=== PATIENT | female | born 1970 | race Caucasian/White ===

== ENCOUNTER 2018-07-02 07:20 | Day surgery (SDC) | payer BC ==
[2018-07-02] MEDS ORDERED: Propofol 200 MG/20 ML SDV ONE (07:36)
[2018-07-02] MEDS ORDERED: Rocuronium 10 MG/ML 10 ML Syringe ONE (07:36)
[2018-07-02] MEDS ORDERED: fentaNYL 250 MCG/5 ML SDV ONE (07:36)
[2018-07-02] MEDS ORDERED: Midazolam 1 MG/ML 2 ML SDV ONE (07:36)
[2018-07-02] MEDS ORDERED: Lidocaine 2% 5 ML SDV ONE (07:36)
[2018-07-02] MEDS ORDERED: Ondansetron 4 MG/2 ML SDV ONE (07:36)
[2018-07-02] MEDS ORDERED: Acetaminophen/HYDROcodone 325-5 MG Tab PO PRN (08:00)
[2018-07-02] MEDS ORDERED: ceFAZolin 2 GM in Premix Bag 1 BAG IV ONE (08:00)
[2018-07-02] MEDS ORDERED: Bupivacaine 0.25%/EPINEPHrine 1:200,000 10 ML SDV INJECT ONE (08:00)
[2018-07-02] MEDS ORDERED: Lactated Ringers 1,000 ML IV SCH (08:00)
--- NOTE | 2018-07-02 08:23 | PCM.PREANE ---
Preanesthetic Assessment - Anesthesia/Transfusion/Family Hx Anesthesia History: Prior Anesthesia Without Reaction Other Type of Anesthesia Reaction Comment: "family and myself have problems with nausea after anesthesia" Family History of Anesthesia Reaction: No Transfusion History: No Prior Transfusion(s) Intubation History: Unknown - Review of Systems General: No Symptoms Pulmonary: No Symptoms Cardiovascular: No Symptoms Gastrointestinal: No Symptoms Neurological: No Symptoms Other: Reports: None - Physical Assessment Height: 1.68 m Weight: 83.915 kg ASA Class: 2 Mental Status: Alert & Oriented x3 Airway Class: Mallampati = 2 Dentition: Reports: Normal Dentition Thyro-Mental Finger Breadths: 3 Mouth Opening Finger Breadths: 2 ROM/Head Extension: Full Lungs: Clear to Auscultation, Normal Respiratory Effort Cardiovascular: Regular Rate, Regular Rhythm - Allergies Allergies/Adverse Reactions: Allergies Allergy/AdvReac Type Severity Reaction Status Date / Time No Known Allergies Allergy Verified 06/26/18 13:32 - Blood Blood Available: No - Anesthesia Plan Pre-Op Medication Ordered: None - Acknowledgements Anesthesia Type Planned: General Anesthesia Pt an Appropriate Candidate for the Planned Anesthesia: Yes Alternatives and Risks of Anesthesia Discussed w Pt/Guardian: Yes Pt/Guardian Understands and Agrees with Anesthesia Plan: Yes PreAnesthesia Questionnaire HEENT History: Reports: None Respiratory History: Reports: Asthma (mild) Gastrointestinal History: Reports: None Genitourinary History: Reports: None Musculoskeletal History: Reports: Osteoarthritis Dermatologic History: Reports: Psoriasis - Past Surgical History HEENT Surgical History: Reports: Naso-Sinus Surgery GI Surgical History: Reports: Appendectomy Musculoskeletal Surgical History: Reports: Arthroscopic Knee, Other (See Below) (Rt. carpo-matacarpal arthroplasty 9 weeks ago) Other Musculoskeletal Surgeries/Procedures:: left knee surgery x4, (ACL repair and meniscus repair) - SUBSTANCE USE Smoking Status *Q: Former Smoker Tobacco Use Within Last Twelve Months: Cigarettes Recreational Drug Use History: No - HOME MEDS Home Medications: Home Meds Albuterol [Proventil HFA] 1 puff INH ASDIRECTED PRN 04/28/18 [History] Ipratropium/Albuterol Sulfate [Iprat-Albut 0.5-3(2.5) mg/3 ml] 1 inhalation NEB ASDIRECTED PRN 04/28/18 [History] Diclofenac Sodium [Voltaren] 1 tab PO ASDIRECTED PRN 06/26/18 [History] traMADol HCl [Tramadol HCl] 50 mg PO ASDIRECTED PRN 06/26/18 [History] - CURRENT (IN HOUSE) MEDS Current Meds: Current Medications Hydrocodone Bitart/Acetaminophen ([place] 325-5 Mg) 1 tab PO Q4H PRN PRN Reason: Pain Cefazolin Sodium/Dextrose 2 gm (/ Premix) 50 mls @ 100 mls/hr IV ONETIME ONE Stop: 07/02/18 08:29 Lactated Ringer's (Ringers, Lactated) 1,000 mls @ 125 mls/hr IV ASDIRECTED TADEO Discontinued Medications Bupivacaine HCl/Epinephrine Bitart (Marcaine 0.25%/Epinephrine 1:200,000) 10 ml INJECT ONETIME ONE Stop: 07/02/18 08:01 Fentanyl (Sublimaze) Confirm Administered Dose 250 mcg .ROUTE .STK-MED ONE Stop: 07/02/18 07:37 Lidocaine (Xylocaine-Mpf 2%) Confirm Administered Dose 5 ml .ROUTE .STK-MED ONE Stop: 07/02/18 07:37 Midazolam HCl (Versed 1 Mg/Ml) Confirm Administered Dose 2 mg .ROUTE .STK-MED ONE Stop: 07/02/18 07:37 Ondansetron HCl (Zofran) Confirm Administered Dose 4 mg .ROUTE .STK-MED ONE Stop: 07/02/18 07:37 Propofol (Diprivan 20 Ml) Confirm Administered Dose 200 mg .ROUTE .STK-MED ONE Stop: 07/02/18 07:37 Rocuronium Josephine (Zemuron) Confirm Administered Dose 100 mg .ROUTE .STK-MED ONE Stop: 07/02/18 07:37
[2018-07-02] MEDS ORDERED: Scopolamine 1.5 MG Transdermal Patch TRDERM PRN (08:29)
[2018-07-02] MEDS ORDERED: Sodium Chloride 0.9% 20 ML ONE (09:47)
[2018-07-02] MEDS ORDERED: ceFAZolin 1 GM Vial ONE (09:47)
[2018-07-02] MEDS ORDERED: Bupivacaine 0.25%/EPINEPHrine 1:200,000 10 ML SDV ONE (10:01)
[2018-07-02] MEDS ORDERED: EPINEPHrine 1 MG/ML 30 ML MDV IVPUSH ONE (10:43)
[2018-07-02] MEDS ORDERED: 50% Dextrose in Water 50 ML Syringe IVPUSH PRN (10:43)
[2018-07-02] MEDS ORDERED: Atropine 1 MG/ML SDV IVPUSH PRN ×2 (10:43)
[2018-07-02] MEDS ORDERED: fentaNYL 100 MCG/2 ML SDV IVPUSH PRN (10:43)
[2018-07-02] MEDS ORDERED: Albuterol 0.083% 2.5 MG/3 ML Neb Soln NEB PRN (10:43)
[2018-07-02] MEDS ORDERED: Naloxone 0.4 MG/ML Syringe IVPUSH PRN (10:43)
--- NOTE | 2018-07-02 12:11 | PCM.POSTAN ---
POST ANESTHESIA ASSESSMENT - MENTAL STATUS Mental Status: Alert, Oriented - RESPIRATORY Respiratory Status: Respiratory Rate WNL, Airway Patent, O2 Saturation Stable - CARDIOVASCULAR CV Status: Pulse Rate WNL, Blood Pressure Stable - GASTROINTESTINAL GI Status: No Symptoms - PAIN Pain Score: 3 - POST OP HYDRATION Hydration Status: Adequate & Stable - OBSERVATIONS Free Text/Narrative:: no anesthesia problems
[2018-07-02] MEDS ORDERED: traMADol 50 MG Tab PO PRN (12:30)
--- NOTE | 2018-07-02 15:00 | PCM.OPNOTE ---
- General Post-Op/Procedure Note Date of Surgery/Procedure: 07/02/18 Operative Procedure(s): left thumb CMC arthroplasty (trapeziectomy, prximal metacarpal removal and ligament reconstruction and tendon interpositon with the flexor carpi radialis) Pre Op Diagnosis: left thumb cmc arthritis severe Post-Op Diagnosis: Same Anesthesia Technique: General LMA, Local Primary Surgeon: Annika Pritchett Road Crew Member: Lyubov Leach [address] Crew Member Was Necessary: retraction, prepping draping and closure assistance Complications: None Condition: Good Free Text/Narrative:: Intake & Output 07/01/18 07/02/18 07/02/18 23:59 07:59 15:59 Intake Total 1300 Balance 1300
--- NOTE | 2018-07-02 17:07 | OR ---
SURGEON: FLACA MILLER MD DATE OF PROCEDURE: 07/02/2018 PREOPERATIVE DIAGNOSIS: Left thumb carpometacarpal arthritis, severe. POSTOPERATIVE DIAGNOSIS: Left thumb carpometacarpal arthritis, severe. PROCEDURES: Left thumb carpometacarpal arthroplasty. FUNERAL HOME MANAGER: NATALIIA Muñoz. REASON FOR AND ROLE OF FUNERAL HOME MANAGER: Retraction, prepping, draping, positioning and closure assistance. ANESTHESIA: General LMA with local. INDICATIONS: Ms. Roberson is seen today in evaluation for left CMC arthroplasty. She had the right one done nine weeks ago. She has done well with this, but does have some superficial radial nerve paresthesias, still bothering her on the right side. She does still have some swelling here as expected. Risks and benefits of the left side were discussed with her and she was in agreement to proceed. Risks were including, but not limited to, bleeding, infection, damage to underlying or overlying structures, possible need for future interventions, possible scarring. PROCEDURE IN DETAIL: After informed consent was obtained and placed on the chart, the patient was brought to operating theater and laid in supine position. After adequate general anesthesia was obtained, the area was prepped and draped, and a time-out was completed to confirm side and site. 0.25% Marcaine with epinephrine was injected into the area and the arm was exsanguinated and tourniquet was insufflated to 200 mmHg. Attention was then paid to a curvilinear dissection down to the metacarpophalangeal joint. Care was taken to retract any of the superficial radial nerve branches. Once adequately located on the joint surface, dissection was then carried onto the trapezium itself and distally onto the metacarpal head. There was significant subluxation of the metacarpal base. Once adequately dissected here, exposed the trapezium itself, was confirmed using fluoroscopy and removed en bloc. Once adequately removed, it was sent for Pathology. Once adequately removed, meticulous hemostasis was obtained and any grossly devitalized bone or inflammation surrounding the area was debrided as well. Attention was then paid to identification of the base of the metacarpal and this was freed from its attachments, and a bone saw was used to transect the base that was significantly involved in the arthritis as well. Once this was transected, attention was then paid to a small 3 mm sarah that was used to sarah a hole through the base of the metacarpal to its side wall to allow resuspension. Once adequately completed, attention was then paid to harvest of the flexor carpi radialis tendon. A separate proximal incision in the forearm was made and dissection was carried down onto the flexor carpi radialis itself. The tendon was then passed into the wound itself through the base of the metacarpal and round about and sutured upon itself to restore appropriate position of the thumb with suspension. Once adequately restored, the remainder of the tendon was then placed into a round ball and sutured together for an anchovy and placed into the previous trapezium site. Once adequately placed, this was sutured upon itself as well, and then the wound was copiously irrigated with normal saline. Once adequately irrigated, the capsule itself was closed around this using a 4-0 Monocryl stitch. Once adequately closed, attention was then paid to deflation of the tourniquet, meticulous hemostasis. Copious irrigation and then closure of the skin. The patient tolerated this well, and all counts and needles were correct at the end of the case. The wound was dressed with Xeroform, fluffs, Kerlix gauze dressing, and a short- arm thumb spica splint. The patient was given a prescription for pain control. She will see us in approximately 2 weeks, sooner if any problems, questions, or concerns. STUART / ROMEO /[id number]
== END 2018-07-02 14:35 | disposition home or self-care (01) ==
LOC: MW.SDS 07:20
PROVIDERS: ATTEND Plastic Surgery
DX: M18.0 Bilateral primary osteoarthritis of first carpometacarpal joints (principal); M65.4 Radial styloid tenosynovitis [de Quervain]; M17.12 Unilateral primary osteoarthritis, left knee; J45.909 Unspecified asthma, uncomplicated; Z79.899 Other long term (current) drug therapy; Z87.891 Personal history of nicotine dependence
CPT/HCPCS: 25447; 81025; A9270; J0690; J2001; J2250; J2405; J2704; J3010; J3490; J7120

== ENCOUNTER 2023-04-10 21:20 | Emergency (ER) | payer BC ==
[2023-04-10] MEDS ORDERED: Sodium Chloride 0.9% 1,000 ML IV ONE (22:04)
[2023-04-10] MEDS ORDERED: Metoclopramide 10 MG/2 ML SDV IVPUSH ONE (22:04)
[2023-04-10] MEDS ORDERED: Sodium Chloride 0.9% 10 ML Syringe FLUSH PRN (22:04)
[2023-04-10] MEDS ORDERED: diphenhydrAMINE 50 MG/ML SDV IVPUSH ONE (22:04)
[2023-04-10] MEDS ORDERED: fentaNYL 50 MCG/ML SDV IVPUSH ONE (22:04)
[2023-04-10] MEDS ORDERED: Sodium Chloride 0.9% 2.5 ML Syringe FLUSH PRN (22:04)
[2023-04-10 22:26] LABS: BASOPHILS ABSOLUTE AUTO 0.04 K/uL (0.00-0.20); BASOPHILS PERCENT AUTO 0.5 % (0.0-1.0); EOSINOPHILS ABSOLUTE AUTO 0.29 K/uL (0.00-0.45); EOSINOPHILS PERCENT AUTO 3.3 % (0.0-6.0); HEMATOCRIT 38.9 % (37.0-47.0); IMMATURE GRAN ABSOLUTE AUTO 0.02 K/uL (0.00-0.05); IMMATURE GRAN PERCENT AUTO 0.2 % (0.0-0.4); LYMPHOCYTES ABSOLUTE AUTO 3.26 K/uL (1.00-4.80); LYMPHOCYTES PERCENT AUTO 37.3 % (24.0-44.0); MEAN CORPUSCULAR HEMOGLOBIN 29.3 pg (28.0-32.0); MEAN CORPUSCULAR HGB CONC 33.4 g/dL (32.0-36.0); MEAN CORPUSCULAR VOLUME 87.6 fL (83.0-99.0); MEAN PLATELET VOLUME 9.1 fL (9.4-12.3); MONOCYTES ABSOLUTE AUTO 0.64 K/uL (0.00-0.80); MONOCYTES PERCENT AUTO 7.3 % (0.0-8.0); NEUTROPHILS ABSOLUTE AUTO 4.48 K/uL (1.80-7.70); NEUTROPHILS PERCENT AUTO 51.4 % (41.0-71.0); PLATELET COUNT,PLT 315 K/uL (150-400); RED BLOOD CELL COUNT 4.44 M/uL (4.10-5.30); WHITE BLOOD CELL COUNT,WBC 8.73 K/uL (3.9-11.3)
[2023-04-10 22:51] LABS: A/G RATIO 1.1 (0.9-1.6); ALBUMIN 4.1 g/dL (3.4-5.0); BILIRUBIN TOTAL 0.5 mg/dL (0.2-1.0); CALCIUM 9.3 mg/dL (8.5-10.1); CARBON DIOXIDE,CO2 28.2 mmol/L (21.0-32.0); CREATININE 0.9 mg/dL (0.6-1.0); EST CRCL DRUG DOSING (CG) 83.42 mL/min; POTASSIUM,K 4.1 mmol/L (3.5-5.1); PROTEIN TOTAL,TP 7.7 g/dL (6.4-8.2)
[2023-04-10] MEDS ORDERED: Ondansetron 4 MG/2 ML SDV IVPUSH ONE (23:09)
[2023-04-10] MEDS ORDERED: Iopamidol 755 MG/ML 500 ML Multipack Bottle IVPUSH ONE (23:38)
[2023-04-11] MEDS ORDERED: HYDROmorphone 1 MG/ML Syringe IVPUSH ONE (00:57)
[2023-04-11 01:38] LABS: INR 1.01 (0.86-1.11)
== END 2023-04-11 03:19 ==
LOC: MW.ED 21:20
DX: I60.9 Nontraumatic subarachnoid hemorrhage, unspecified (principal); J45.909 Unspecified asthma, uncomplicated; Z79.899 Other long term (current) drug therapy
CPT/HCPCS: 36415; 70450; 70496; 70498; 80053; 85025; 85610; 85730; 96361; 96374; 96375; 99285; J1170; J1200; J2405; J2765; J3010; J3490; J7030; Q9967; 99291

== ENCOUNTER 2023-04-16 16:40 | Emergency (ER) | payer BC ==
[2023-04-16] MEDS ORDERED: Sodium Chloride 0.9% 10 ML Syringe FLUSH PRN (17:16)
[2023-04-16] MEDS ORDERED: Sodium Chloride 0.9% 2.5 ML Syringe FLUSH PRN (17:16)
[2023-04-16] MEDS ORDERED: Morphine 4 MG/ML Syringe IVPUSH ONE (17:17)
[2023-04-16] MEDS ORDERED: Ondansetron 4 MG/2 ML SDV IVPUSH ONE (17:18)
[2023-04-16 17:28] LABS: BASOPHILS ABSOLUTE AUTO 0.05 K/uL (0.00-0.20); BASOPHILS PERCENT AUTO 0.4 % (0.0-1.0); EOSINOPHILS ABSOLUTE AUTO 0.51 K/uL (0.00-0.45); EOSINOPHILS PERCENT AUTO 4.4 % (0.0-6.0); HEMOGLOBIN 14.3 g/dL (12.0-16.0); IMMATURE GRAN ABSOLUTE AUTO 0.05 K/uL (0.00-0.05); IMMATURE GRAN PERCENT AUTO 0.4 % (0.0-0.4); LYMPHOCYTES ABSOLUTE AUTO 1.83 K/uL (1.00-4.80); LYMPHOCYTES PERCENT AUTO 15.9 % (24.0-44.0); MEAN CORPUSCULAR HEMOGLOBIN 29.2 pg (28.0-32.0); MEAN CORPUSCULAR VOLUME 85.9 fL (83.0-99.0); MEAN PLATELET VOLUME 9.3 fL (9.4-12.3); MONOCYTES ABSOLUTE AUTO 0.73 K/uL (0.00-0.80); MONOCYTES PERCENT AUTO 6.4 % (0.0-8.0); NEUTROPHILS ABSOLUTE AUTO 8.32 K/uL (1.80-7.70); NEUTROPHILS PERCENT AUTO 72.5 % (41.0-71.0); PLATELET COUNT,PLT 357 K/uL (150-400); RED BLOOD CELL COUNT 4.89 M/uL (4.10-5.30); WHITE BLOOD CELL COUNT,WBC 11.49 K/uL (3.9-11.3)
[2023-04-16 17:36] LABS: INR 1.02 (0.86-1.11)
[2023-04-16 18:04] LABS: ALBUMIN 3.8 g/dL (3.4-5.0); BILIRUBIN TOTAL 0.6 mg/dL (0.2-1.0); CARBON DIOXIDE,CO2 21.5 mmol/L (21.0-32.0); CREATININE 1.2 mg/dL (0.6-1.0); EST CRCL DRUG DOSING (CG) 50.75 mL/min; POTASSIUM,K 3.6 mmol/L (3.5-5.1); PROTEIN TOTAL,TP 7.7 g/dL (6.4-8.2)
== END 2023-04-16 19:10 ==
LOC: MW.ED 16:40
DX: I60.9 Nontraumatic subarachnoid hemorrhage, unspecified (principal); J45.909 Unspecified asthma, uncomplicated; Z91.048 Other nonmedicinal substance allergy status; Z79.899 Other long term (current) drug therapy
CPT/HCPCS: 36415; 70450; 80053; 83930; 85025; 85610; 96374; 96375; 99285; J2270; J2405; J3490; 99284

== ENCOUNTER 2023-10-24 09:07 | Day surgery (SDC) | payer BC ==
[~2023-10-24 09:07] MED LIST: Sodium Chloride 0.9% 10 ML Syringe FLUSH PRN; Sodium Chloride 0.9% 2.5 ML Syringe FLUSH PRN; Sodium Chloride 0.9% 20 ML SDV IV PRN
[2023-10-24] MEDS: Lactated Ringers 1,000 ML IV SCH (09:45)
[2023-10-24] MEDS ORDERED: propofoL 50 ML ONE (10:37)
== END 2023-10-24 11:45 | disposition home or self-care (01) ==
LOC: MW.SDS 09:07
PROVIDERS: ATTEND Surgery
DX: Z12.11 Encounter for screening for malignant neoplasm of colon (principal); K63.5 Polyp of colon; K20.0 Eosinophilic esophagitis; R13.10 Dysphagia, unspecified; K44.9 Diaphragmatic hernia without obstruction or gangrene; J45.909 Unspecified asthma, uncomplicated; Z87.891 Personal history of nicotine dependence; Z79.899 Other long term (current) drug therapy
CPT/HCPCS: 43239; 45380; J2704; J7120; 00813